=== PATIENT | female | born 1975 | race African-American/Black ===

== ENCOUNTER 2020-08-02 12:08 | Outpatient (CLI) | payer BC, SELFPAY ==
--- NOTE | ~2020-08-02 | MM_ITS ---
EXAMINATION: MM screening melissa BI w danielle HISTORY: Screening mammogram TECHNIQUE: Craniocaudal and mediolateral oblique 3-D tomosynthesis images were obtained and synthetic 2-D images were generated. CAD analysis was submitted and interpreted. COMPARISON: 08/19/2016 bilateral digital screening mammogram BREAST PARENCHYMAL COMPOSITION: There are scattered areas of fibroglandular density. FINDINGS: There is no evidence of suspicious mass, calcification, or architectural distortion to sugg est malignancy in either breast. There has been no suspicious interval change. IMPRESSION: 1. No mammographic evidence of malignancy. 2. Recommend routine screening mammography in one year. BI-RADS Category 1: Negative Reviewed, dictated and finalized at location A.
== END 2020-08-02 12:09 | disposition home or self-care (01) ==
LOC: ANHIMG 12:12
PROVIDERS: PCP Emergency Medicine; Visit Provider Emergency Medicine
DX: Z12.31 Encounter for screening mammogram for malignant neoplasm of breast (principal)
CPT/HCPCS: 77063; 77067

== ENCOUNTER → 2020-12-21 15:10 | Outpatient (CLI) | payer BC, SELFPAY ==
--- NOTE | ~2020-12-21 | XR_ITS ---
XR chest 2V DATE: 12/21/2020 15:47 INDICATION: Right acromioclavicular/glenohumeral osteoarthritis TECHNIQUE: PA and lateral views COMPARISON: 10/29/2018 2 view chest FINDINGS: Normal heart size. No hilar or mediastinal enlargement. The lungs are clear of infiltrate o r consolidation. No pleural effusion or pulmonary vascular congestion or pneumothorax. Included skele sudarshan structures are unremarkable. IMPRESSION: No active cardiopulmonary disease or significant change since 10/29/2018 Reviewed, dictated and finalized at location A. IMPRESSION: No active cardiopulmonary disease or significant change since 2018
--- NOTE | ~2020-12-21 | XR_ITS ---
XR thoracic spine 3V DATE: 12/21/2020 15:47 INDICATION: Back pain TECHNIQUE: AP, lateral, swimmer views COMPARISON: None FINDINGS: Mild degenerative disc disease at C4 and moderate degenerative disc disease at C4-5, C5-6 a nd C6-7. No fracture or dislocation of the thoracic spine. There is minimal degenerative spurring of the thora cic spine. The thoracic pedicles are intact. No paraspinal soft tissue thickening. IMPRESSION: Minimal degenerative spurring of the thoracic spine Degenerative disc disease of the cervical spine Reviewed, dictated and finalized at location A.
== END ==
LOC: EXPCRAD 15:13
PROVIDERS: PCP Emergency Medicine; Visit Provider Emergency Medicine
DX: M19.011 Primary osteoarthritis, right shoulder (principal); M51.34 Other intervertebral disc degeneration, thoracic region
CPT/HCPCS: 71046; 72072

== ENCOUNTER 2021-08-17 09:30 | Outpatient (CLI) | payer OTHER, SELFPAY ==
--- NOTE | 2021-08-17 09:54 | ECG_ITS ---
Measurements Intervals Bryce Rate: 60 P: 66 WI: 147 QRS: -1 QRSD: 114 T: 33 QT: 412 QTc: 413 Interpretive Statements SINUS RHYTHM INTRAVENTRICULAR CONDUCTION DELAY BORDERLINE T WAVE ABNORMALITY- ANTERIOR LEADS BASELINE WANDER- I, II, AVR, AVL, AVF, V1, V4-V6 BORDERLINE ECG Electronically Signed On 08-17-2021 11:08:15 CDT by Reginald Geller D.O.
[2021-08-17 10:29] LABS: Anion Gap 4 mmol/L (8-16); Blood Urea Nitrogen 13 mg/dL (7-17); Calcium 8.7 mg/dL (8.4-10.2); Carbon Dioxide 31 mmol/L (22-30); Chloride 104 mmol/L (98-107); Estimated Glomerular Filt Rate > 60; Glucose 128 mg/dL (65-110); Potassium 3.3 mmol/L (3.4-5.0); Sodium 139 mmol/L (137-145)
== END 2021-08-17 09:31 | disposition home or self-care (01) ==
LOC: ANHLAB 09:35
PROVIDERS: PCP Emergency Medicine; Visit Provider Otolaryngology
DX: Z01.812 Encounter for preprocedural laboratory examination (principal); I45.9 Conduction disorder, unspecified; I10 Essential (primary) hypertension
CPT/HCPCS: 36415; 80048; 93005

== ENCOUNTER 2021-11-23 07:50 | Outpatient (CLI) | payer OTHER, SELFPAY ==
--- NOTE | ~2021-11-23 | MM_ITS ---
EXAMINATION: MM screening melissa BI w danielle HISTORY: Screening mammogram TECHNIQUE: Craniocaudal and mediolateral oblique 3-D tomosynthesis images were obtained and synthetic 2-D images were generated. CAD analysis was submitted and interpreted. COMPARISON: 07/25/2020, 08/19/2016 bilateral screening mammogram examinations BREAST PARENCHYMAL COMPOSITION: The breasts are heterogeneously dense, which may obscure small masses . FINDINGS: There is no evidence of suspicious mass, calcification, or architectural distortion to sugg est malignancy in either breast. There has been no suspicious interval change. IMPRESSION: 1. No mammographic evidence of malignancy. 2. Recommend routine screening mammography in one year. BI-RADS Category 1: Negative Reviewed, dictated and finalized at location A.
[2021-11-23 08:55] LABS: Cholesterol 209 mg/dL (0-200); HDL Direct 63 mg/dL; Triglycerides 103 mg/dL (<150)
[2021-11-23 08:56] LABS: Creatinine Urine 185.4 mg/dL
[2021-11-23 09:06] LABS: LDL Cholesterol Direct 105 mg/dL
[2021-11-23 09:18] LABS: Appearance Urine Clear (Clear); Bilirubin Urine Negative (Negative); Blood Urine 2+ (Negative); Color Urine Yellow (Yellow); Glucose Urine UA Negative (Negative); Ketones Urine Negative (Negative); Leukocyte Esterase Ur Trace LEU/UL (NEGATIVE); Nitrate Urine Negative (Negative); Protein Urine 3+ mg/dL (Negative); Specific Grav Ur >= 1.030 (1.001-1.035); Urobilinogen Urine 0.2 mg/dL (<2.0)
[2021-11-23 09:21] LABS: Vitamin D 25 Hydroxy 38.9 ng/mL
[2021-11-23 09:24] LABS: Bacteria Urine Trace /hpf; Mucus Urine Rare /lpf; Squamous Epithelial Cell Urine Few /hpf (Few)
[2021-11-23 09:26] LABS: Thyroid Stimulating Hormone 0.476 uIU/mL (0.465-4.680)
[2021-11-23 09:29] LABS: Add Urine Microscopic? YES
[2021-11-23 09:33] LABS: Hemoglobin A1C 5.5 % (<5.7)
[2021-11-23 10:21] LABS: Microalbumin Urine Random > 1140.0 mg/L (0-16.7)
== END 2021-11-23 07:51 | disposition home or self-care (01) ==
PROVIDERS: PCP Emergency Medicine; Visit Provider Emergency Medicine
DX: Z12.31 Encounter for screening mammogram for malignant neoplasm of breast (principal); I10 Essential (primary) hypertension; E78.00 Pure hypercholesterolemia, unspecified; M19.011 Primary osteoarthritis, right shoulder; R80.9 Proteinuria, unspecified; R31.29 Other microscopic hematuria; M47.812 Spondylosis without myelopathy or radiculopathy, cervical region; A60.00 Herpesviral infection of urogenital system, unspecified
CPT/HCPCS: 36415; 77063; 77067; 80061; 81001; 82043; 82306; 83036; 84439; 84443

== ENCOUNTER 2023-01-09 14:09 | Emergency (ER) | payer OTHER, SELFPAY ==
--- NOTE | ~2023-01-09 | XR_ITS ---
Left foot Technique: AP, oblique, and lateral views were obtained. Clinical History: Fifth digit injury Findings: No acute fracture or dislocation is seen. Osseous alignment is anatomic. Joint spaces are p reserved without erosive or degenerative change. Soft tissues are unremarkable. Impression: Unremarkable left foot radiographs. Reviewed, dictated and finalized at [facility]. Impression: Unremarkable left foot radiographs.
[2023-01-09 14:19] VITALS: BP 136/93; PULSE 71; RESP 16; TEMP 36.4; O2SAT 100
[2023-01-09 14:21] VITALS: BP 136/93; PULSE 71; RESP 16; TEMP 36.4; O2SAT 100
--- NOTE | 2023-01-09 14:29 | ED.LOWEXIN ---
HPI - Extremity Injury (Lower) General Chief Complaint: Extremity Injury, Lower Stated Complaint: Left Foot Pain History of Present Illness HPI Narrative: Pt is a 47 y/o female, presents to via POV with left 5th toe injury, sustained when she caught her toe on a corner yesterday. She reports pain and swelling since. No other injuries or complaints. She denies chance of (S/P hysterectomy). Related Data Home Medications Medication Instructions Recorded Confirmed amlodipine-valsartan 01/09/23 dapagliflozin propanediol 10 mg mg 01/09/23 tablet (Farxiga) simvastatin 40 mg tablet mg 01/09/23 valacyclovir 500 mg tablet mg 01/09/23 Allergies Allergy/AdvReac Type Severity Reaction Status Date / Time No Known Allergies Allergy Verified 01/09/23 14:20 Review of Systems Constitutional: Constitutional: Reports as per HPI and Reports no additional constitutional complaints ENT: Reports as per HPI Cardiovascular: Cardiovascular: Reports as per HPI Respiratory: Respiratory: Reports as per HPI Musculoskeletal: Musculoskeletal: Reports as per HPI Exam Const: General: healthy appearing, no acute distress and alert Nutritional Appearance: well nourished Orientation/consciousness: patient oriented x3 Limitations: no limitations HENMT: Head: normal to inspection Ears: external ears normal and TM's normal bilaterally Face/Nose/Sinus: Normal external nose present and Normal nares present Mouth: Yes Normal oral and palatal mucosa present and Yes lip normal Teeth and gingiva: dentition normal Eyes: Conjunctivae: conjunctivae normal Pupils: Equal, round and reactive pupils present EOM: EOMs intact bilaterally Neck: Neck: normal visual inspection and no lymphadenopathy Resp: Effort & Inspection: normal respiratory effort Auscultation: clear to auscultation bilaterally Cardio: Rate: regular rate Rhythm: regular rhythm GI: GI Palp: Yes Soft to palpation, No Tenderness to palpation present (GI), No Guarding due to palpation present (GI), No Rigid due to palpation, No Hernia present, No Palpable mass present and No Rebound tenderness present Auscultation: normal bowel sounds Skin: General skin exam: normal color Rashes: no rashes Neuro: General: patient oriented x3, moves all extremities and no meningeal signs Cranial nerves: Yes Nystagmus not present Speech: normal speech Gait exam (Neuro): Normal gait present Extrem: Other: Pt is TTP over the left 5th toe with mild swelling noted. The nail plate is intact. The left 5th MC is non TTP. No deformity appreciated. Distal PMS intact Course Course Emergency Course: left foot plain film Level of Care: Express Care Visit (89218) Vital Signs Vital signs: Vital Signs Temperature 36.4 C 01/09/23 14:19 Pulse Rate 71 01/09/23 14:19 Respiratory Rate 16 01/09/23 14:19 Blood Pressure 136/93 H 01/09/23 14:19 Pulse Oximetry 100 01/09/23 14:19 Oxygen Delivery Room Air 01/09/23 14:19 Temperature 36.4 C 01/09/23 14:21 Pulse Rate 71 01/09/23 14:21 Respiratory Rate 16 01/09/23 14:21 Blood Pressure 136/93 H 01/09/23 14:21 Pulse Oximetry 100 01/09/23 14:21 Oxygen Delivery Room Air 01/09/23 14:21 MDM - Extremity Injury (Lower) MDM Narrative Medical decision making narrative: plain film unremarkable for fracture. Pt is advised of plan to discharge home with RICE instructions, gamaliel tape as needed, supportive shoes, FU with PCP in 7-10 days if pain is not resolving. Pt is agreeable with plan Differential Diagnosis Differential diagnosis: Likely fracture of toe and other (sprain, contusion) Discharge Plan Discharge Clinical Impression: Sprain of fifth toe, left Qualifiers: Encounter type: initial encounter Qualified Code(s): S93.505A - Unspecified sprain of left lesser toe(s), initial encounter Patient Disposition: Home, Self-Care Condition: Stable Instructions: Antibiotic Form, Sprain (ED) Rk
== END 2023-01-09 14:49 | disposition home or self-care (01) ==
PROVIDERS: Emergency Provider Nurse Practitioner Family; PCP Emergency Medicine
DX: S93.505A Unspecified sprain of left lesser toe(s), initial encounter (principal); Z79.899 Other long term (current) drug therapy; W22.8XXA Striking against or struck by other objects, initial encounter
CPT/HCPCS: 73630; 99213; G0463

== ENCOUNTER 2023-02-14 08:32 | Emergency (ER) | payer OTHER, SELFPAY ==
--- NOTE | 2023-02-14 08:33 | ED.NECK ---
HPI - Neck Pain/Injury General Chief Complaint: Neck Pain/Injury Stated Complaint: Left Side Neck/Arm Pain Time Seen by Provider: 02/14/23 08:33 Source: patient Mode of arrival: ambulatory Limitations: no limitations History of Present Illness HPI Narrative: Linda is a 47-year-old female patient presenting to the clinic today with complaints of left-sided neck/arm pain x1-2 days. She reports no known injury. Thinks she may have slept wrong. Does work for the [employer] and does a lot of repetitious movement with her arms. Related Data Home Medications Medication Instructions Recorded Confirmed amlodipine 10 mg tablet mg 02/14/23 losartan 100 mg tablet mg 02/14/23 simvastatin 40 mg tablet mg 02/14/23 Allergies Allergy/AdvReac Type Severity Reaction Status Date / Time No Known Allergies Allergy Verified 02/14/23 08:34 Review of Systems Review of Systems: Pertinent positives per HPI. Patient denies any fever, chills, rash, headache, visual changes, dizziness, cough, runny nose, sore throat, shortness of breath, chest pain, palpitations, nausea, vomiting, diarrhea, constipation, abdominal pain, or any urinary issues. PMFSH Comments At the time of my signature, I reviewed and agree with the nursing past medical, surgical, social, and family history. There is no relevant family history pertinent to the patient complaint. Exam Narrative: General: Well-developed, well nourished, in no apparent distress Head: Normocephalic, atraumatic. Cardio: Regular rate and rhythm, s1 and s2 normal, no murmur appreciated. Resp: Clear to auscultation bilaterally, no rhonchi, rales, wheezing or rubs. Musculoskeletal: No deformity, no tenderness to palpation over the posterior cervical spine, tender to palpation over these cervical musculature of the left trapezius, pain with empty can and full can testing over the left trapezius musculature, negative drop-arm test, negative cross-arm and hawkings test, grossly normal range of motion, muscle strength strong and equal, peripheral pulse strong, no edema, no cyanosis, normal gait and station Course Course Emergency Course: Portions of this record may have been created with voice recognition software. Level of Care: Express Care Visit Vital Signs Vital signs: Vital signs reviewed MDM - Neck Pain/Injury MDM Narrative Medical decision making narrative: At the time of visit patient is resting comfortably on the exam table. I suspect the patient has a left trapezius cervical strain. Patient reports that she has chronic kidney disease and cannot take NSAIDs. Offered to give her some steroids and muscle relaxer and she declined. Supportive measures were discussed with the patient she voiced understanding discharge instructions and agrees to treatment plan. Differential Diagnosis Differential diagnosis: Likely disc disorder of cervical region, cervical radiculopathy, torticollis and strain of neck muscle Discharge Plan Discharge Clinical Impression: Strain of cervical portion of left trapezius muscle Patient Disposition: Home, Self-Care Condition: Stable Instructions: Antibiotic Form, Cervical Strain (ED) Additional Instructions: May take Tylenol extra-strength as needed for pain May use heat or ice to the affected area Consider massage or chiropractor adjustment if this was discussed with provider May use blue emu, lidocaine patches, or asper cream to affected area- do not apply heat or ice directly over cream- can cause burn. Complete appropriate neck stretching exercises 2-3 times per day. Follow up with your PCP in 3-5 days if symptom persist. Prescriptions: No Action simvastatin 40 mg tablet amlodipine 10 mg tablet losartan 100 mg tablet Follow-up/Referrals: Piero Georges MD [Primary Care Provider] - Time of Disposition: 08:51 Quality NIHSS Nursing Documentation ED NIHSS nursing documentation: tristen
[2023-02-14 08:43] VITALS: BP 149/95; PULSE 67; RESP 16; TEMP 36.3; O2SAT 100
== END 2023-02-14 08:56 | disposition home or self-care (01) ==
LOC: EXPCOLL 08:36
PROVIDERS: Emergency Provider Nurse Practitioner Family; PCP Emergency Medicine
DX: S16.1XXA Strain of muscle, fascia and tendon at neck level, initial encounter (principal); X58.XXXA Exposure to other specified factors, initial encounter; E78.00 Pure hypercholesterolemia, unspecified; I10 Essential (primary) hypertension; J45.909 Unspecified asthma, uncomplicated
CPT/HCPCS: 99211; G0463

== ENCOUNTER 2023-02-20 13:08 | Outpatient (CLI) | payer OTHER, SELFPAY ==
[2023-02-20 13:52] LABS: Hematocrit 40.2 % (37.0-47.0); Hemoglobin 12.9 g/dL (12.0-15.0); Mean Corpuscular HGB Conc 32.1 g/dl (32-36); Mean Corpuscular Hemoglobin 31.3 pg (26-34); Mean Corpuscular Volume 97.6 fl (80-100); Mean Platelet Volume 10.9 fl (7.4-10.4); Platelet Count Result 209 k/mm3 (150-375); Red Blood Count 4.12 M/mm3 (4.2-5.4); Red Cell Distribution Width 13.2 % (11.5-14.5); White Blood Count 6.3 K/mm3 (4.5-10.0)
[2023-02-20 14:03] LABS: Appearance Urine Clear (Clear); Bacteria Urine Rare /hpf; Bilirubin Urine Negative (Negative); Blood Urine 2+ (Negative); Color Urine Yellow (Yellow); Glucose Urine UA 3+ mg/dL (Negative); Ketones Urine Negative (Negative); Leukocyte Esterase Ur Negative LEU/UL (NEGATIVE); Nitrate Urine Negative (Negative); Protein Urine 3+ mg/dL (Negative); Specific Grav Ur 1.019 (1.001-1.035); Squamous Epithelial Cell Urine Occasional /hpf (Few); Urobilinogen Urine 0.2 mg/dL (<2.0); WBC Urine 0-5 /hpf (0-3); pH Urine 5.5 (5.0-9.0)
[2023-02-20 14:08] LABS: Add Urine Microscopic? YES
[2023-02-20 14:10] LABS: Alanine Aminotransferase 23 U/L (6-35); Albumin Level 4.4 g/dL (3.5-5.1); Alkaline Phosphatase 64 U/L (38-126); Anion Gap 9 mmol/L (8-16); Aspartate Amino Transferase 30 U/L (14-36); Bilirubin,Total 0.6 mg/dL (0.2-1.3); Blood Urea Nitrogen 18 mg/dL (7-17); Calcium 9.5 mg/dL (8.4-10.2); Carbon Dioxide 29 mmol/L (22-30); Chloride 101 mmol/L (98-107); Cholesterol 228 mg/dL (0-200); Estimated Glomerular Filt Rate > 60; Glucose 102 mg/dL (65-110); HDL Direct 70 mg/dL; Potassium 3.4 mmol/L (3.4-5.0); Sodium 139 mmol/L (137-145); Triglycerides 177 mg/dL (<150)
[2023-02-20 14:21] LABS: LDL Cholesterol Direct 113 mg/dL
[2023-02-20 14:42] LABS: Thyroid Stimulating Hormone 0.392 uIU/mL (0.465-4.680)
[2023-02-20 15:11] LABS: Creatinine Urine 183.2 mg/dL
[2023-02-20 15:24] LABS: Free T4 Free Thyroxine 1.01 ng/mL (0.78-2.19); Vitamin D 25 Hydroxy 14.4 ng/mL
[2023-02-20 15:35] LABS: Hemoglobin A1C 5.3 % (<5.7)
[2023-02-20 16:35] LABS: Microalbumin Urine Random > 1140.0 mg/L (0-16.7)
== END 2023-02-20 13:09 | disposition home or self-care (01) ==
PROVIDERS: PCP Emergency Medicine; Visit Provider Emergency Medicine
DX: E78.5 Hyperlipidemia, unspecified (principal); R31.9 Hematuria, unspecified; I10 Essential (primary) hypertension; E55.9 Vitamin D deficiency, unspecified; R80.9 Proteinuria, unspecified
CPT/HCPCS: 36415; 80053; 80061; 81001; 82043; 82306; 83036; 84439; 84443; 85027

== ENCOUNTER 2023-03-27 08:03 | Outpatient (CLI) | payer OTHER, SELFPAY ==
--- NOTE | ~2023-03-27 | MM_ITS ---
EXAMINATION: MM screening melissa BI w danielle HISTORY: Screening mammogram TECHNIQUE: Craniocaudal and mediolateral oblique 3-D tomosynthesis images were obtained and synthetic 2-D images were generated. CAD analysis was submitted and interpreted. COMPARISON: 11/23/2021, 07/25/2020, 08/19/2016 bilateral screening mammogram examinations BREAST PARENCHYMAL COMPOSITION: There are scattered areas of fibroglandular density. FINDINGS: Occasional bilateral benign calcifications. There is no evidence of suspicious mass, calcif ication, or architectural distortion to suggest malignancy in either breast. There has been no suspic ious interval change. IMPRESSION: 1. No mammographic evidence of malignancy. 2. Recommend routine screening mammography in one year. Reviewed, dictated and finalized at location A. [employer]CTOR REPAIRER
== END 2023-03-27 08:04 | disposition home or self-care (01) ==
PROVIDERS: PCP Emergency Medicine; Visit Provider Emergency Medicine
DX: Z12.31 Encounter for screening mammogram for malignant neoplasm of breast (principal)
CPT/HCPCS: 77063; 77067